=== PATIENT | female | born 1970 | race Caucasian/White ===

== ENCOUNTER 2016-12-20 06:01 | Day surgery (SDC) | payer BC, MEDICAID ==
[~2016-12-20] VITALS: Ht 157.5 cm; Wt 63.5 kg
[2016-12-20] MEDS ORDERED: HUMALOG MI100 UNITS/ SC (06:55)
[2016-12-20 06:59] VITALS: BP 133/76; Ht 157.5 cm; Wt 63.5 kg
[2016-12-20 07:08] LABS: HCG URINE NEGATIVE (NEGATIVE)
[2016-12-20 07:41] LABS: BASOPHILS 0.8 % (0-2); EOSINOPHILS 2.4 % (0-7); HEMATOCRIT 42.5 % (36.0-48.0); HEMOGLOBIN 14.7 g/dL (12-16); IMMATURE GRANULOCYTES 0.2 % (0-5); LYMPHOCYTES 33.1 % (15-50); MCH 31.7 pg (26.0-34.0); MCHC 34.6 g/dL (31.0-37.0); MCV 91.6 fL (80.0-100.0); NEUTROPHILS 53.5 % (40-80); PLATELET COUNT 243 10x3/uL (130-400); RBC 4.64 10x6/uL (4.00-5.40); RDW 12.1 % (11.5-14.5); WBC 4.9 10x3/uL (4.8-10.8)
[2016-12-20 07:55] LABS: ANION GAP 13.5 mmol/L (8-16); CARBON DIOXIDE 31.8 mmol/L (21.0-32.0); CREATININE - SERUM 1.2 mg/dL (0.6-1.3); POTASSIUM - SERUM 4.3 mmol/L (3.5-5.1)
--- NOTE | 2016-12-20 09:42 | NUR ---
POSTOP FSBS 253MG/DL. CONSULTED ANETHESIA AND NO NEW ORDERS AT THIS TIME. WILL CONTINUE TO MONITOR. PT WILL TREAT THIS AT HOME.
--- NOTE | 2016-12-20 11:00 | NUR ---
STATES PAIN IS BETTER. DRESSED AND READY FOR DISCHARGE.
== END 2016-12-20 11:00 | disposition home or self-care (01) ==
LOC: D.OPS 06:01 → D.PAN 08:00 → D.OPS 11:00
PROVIDERS: Obstetrics & Gynecology
DX: N80.9 Endometriosis, unspecified (principal); E11.9 Type 2 diabetes mellitus without complications; G43.909 Migraine, unspecified, not intractable, without status migrainosus; R10.2 Pelvic and perineal pain; Z01.812 Encounter for preprocedural laboratory examination

== ENCOUNTER → 2019-03-23 09:15 | Outpatient (CLI) | payer BC, MEDICAID ==
[2016-12-20 06:59] VITALS: BMI 25.6
[~2019-03-23 09:15] MED LIST: HUMALOG MI100 UNITS/ SC
== END | disposition home or self-care (01) ==
LOC: D.NM 09:15
PROVIDERS: ATTEND Internal Medicine Gastroenterology
DX: R12 Heartburn (principal); R11.0 Nausea